=== PATIENT | male | born 1955 | race African-American/Black ===

== ENCOUNTER 2021-04-16 15:12 | Emergency (ER) | payer OTHER ==
[~2021-04-16] VITALS: Ht 182.9 cm; Wt 72.6 kg
--- NOTE | ~2021-04-16 | EMS ---
[address] [address] EMS Patient Care Report Name: AKOSUA CALDWELL Room #: PRE JASPREET [place]#: [id number] Admission: Attend Phys: Discharge: Date of : 59 Report #: [id number] THIS REPORT FOR: //name// Report Transmitted: 04/16/2021 15:46 EMS Care Summary [place], [place]/[facility] Incident [id number] @ 04/16/2021 14:36 Incident Location [address] [place], [place] [id number] Patient AKOSUA CALDWELL Male, 65 Years 1955 Patient Address [address] [place] [address] Patient History Hypertension (HTN),Dialysis,Type 2 Diabetes, Patient Allergies No known allergies, Patient Medications Carvedilol, Hydralazine, Amlodipine, Chief Complaint Severe resp distress. Disposition Transported [place] [facility] Reason Breathing Problem Transported To [facility] Narrative Call for SOB. Upon arrival, P36 on the scene. Pt tried to go to dialysis today but was turned away for fear of possible Covid dx. He said beginning on [address] [address] EMS Patient Care Report Name: AKOSUA CALDWELL Room #: PRE ER M.R.#: [id number] Admission: Attend Phys: Discharge: Date of : 59 Report #: [id number] Monday, he developed some body aches, vomiting and diarrhea. At this time, the pt is in severe resp distress. P36 had a nebulizer tx going with some improvement. Pt was moved to the EMS cot and loaded into the ambulance w/o incident. Vitals obtained. Pt switched to CPAP due to impending resp failure. 18g IV SL to R AC. En route: pt said he was doing a little better with CPAP. RR to the ER. Arrived: pt taken to ER #6 and moved to their bed w/o incident. Pt care & report to ER staff. Initial Vitals @14:55P: 110,R: 60,BP: 215/110,Pain: 0/10,GCS: 15,Glucose: 151,SpO2: 95,Revised Trauma: 11, Assessments @14:48MENTAL:Person Oriented,Event Oriented,Time Oriented,Place Oriented,SKIN:Diaphoresis,HEENT:Neck/Airway: JVD,LUNG SOUNDS:General: Diarrhea,General: Vomiting,ABDOMEN:General: Diarrhea,General: Vomiting,PELVIS//GI:EXTREMITIES:Left Arm: Other,Right Arm: No Abnormalities,Left Leg: No Abnormalities,Right Leg: No Abnormalities,PULSE:Radial: 2+ Normal,NEURO: Impression Acute Respiratory Distress (Dyspnea) Procedures @14:48 ALS Assessment Response: UnchangedSucceeded @PTAOxygen FlowRate: 8 Device: Nebulizer Response: UnchangedSucceeded @14:51 Stretcher Response: Unchanged @14:55 CPAP FlowRate: 10 Response: ImprovedSucceeded @14:59 IV Therapy - Saline Lock 8cc (18 ga) Site: Antecubital-Right Response: UnchangedSucceeded @PTAAlbuterol - 2.5 Milligrams (mg) - Nebulized Response: Improved @PTAAtrovent - 0.5 Milligrams (mg) - Nebulized Response: Improved @PTAAlbuterol - 2.5 Milligrams (mg) - Nebulized Response: Improved Timeline MANUFACTURING SHIFT SUPERVISOR,Oxygen FlowRate: 8 Device: Nebulizer Response: UnchangedSucceeded, MANUFACTURING SHIFT SUPERVISOR,Albuterol - 2.5 Milligrams (mg) - Nebulized,Response: Improved MANUFACTURING SHIFT SUPERVISOR,Atrovent - 0.5 Milligrams (mg) - Nebulized,Response: Improved MANUFACTURING SHIFT SUPERVISOR,Albuterol - 2.5 Milligrams (mg) - Nebulized,Response: Improved 14:35,Call Received 14:35,Dispatch Notified 14:36,Dispatched 14:36,En Route 14:47,On Scene 14:48,At Patient [address] [address] EMS Patient Care Report Name: AKOSUA CALDWELL Room #: PRE M.R.#: [id number] Admission: Attend Phys: Discharge: Date of : 59 Report #: [id number] 14:48,ALS Assessment,Response: UnchangedSucceeded, 14:51,Stretcher,Response: Unchanged 14:55,CPAP FlowRate: 10 Response: ImprovedSucceeded, 14:55,BP: 215/110 M,PULSE: 110,RR: 60 R,SPO2: 95 Ox,ETCO2: ,B,PAIN: 0,GCS: 15, 14:59,IV Therapy - Saline Lock 8cc 18 ga Site: Antecubital-Right,Response: UnchangedSucceeded, 15:01,Depart Scene 15:21,At Destination 15:23,Call Closed Disclaimer v1.1 Copyright 2021 [employer] This EMS Care Summary contains data elements from the applicable legal record (which may be displayed differently). It is designed to provide pertinent information for the following purposes: continuity of care, clinical quality, and state data reporting. The complete legal record is available to ED staff and administrators of the receiving hospital in [employer]'s Patient Tracker. All data is provided "as is."
[2021-04-16 15:35] LABS: ABSOLUTE NEUTROPHILS 7.1 thou/uL (1.4-8.2); BASOPHILS 1.4 % (0.0-2.0); EOSINOPHILS 0.7 % (0.0-3.0); HEMATOCRIT 22.7 % (42.0-52.0); HEMOGLOBIN 7.3 gm/dL (14.0-18.0); LYMPHOCYTES 9.6 % (24.0-44.0); MCH 26.2 pg (26.0-34.0); MCHC 32.3 g/dL (28.0-37.0); MCV 81.3 fL (80.0-100.0); MONOCYTES 13.8 % (1.0-8.0); POLYS 74.5 % (36.0-66.0); RBC 2.79 mil/uL (4.50-6.00); RDW 20.3 % (10.5-14.5); WBC 9.6 thou/uL (4.0-11.0)
[2021-04-16 16:06] LABS: APTT 38.2 Seconds (24.5-32.8); INR 1.14; PROTIME 12.3 Seconds (10.5-12.1)
[2021-04-16 16:41] LABS: PLATELET COUNT 61 thou/uL (150-400)
[2021-04-16 16:42] LABS: ANISOCYTOSIS 2+; MICROCYTES 1+; PLATELET ESTIMATE DECREASED
[2021-04-16 17:05] LABS: CALCIUM 8.7 mg/dL (8.5-10.1); CREATININE 16.7 mg/dL (0.7-1.3); POTASSIUM 5.6 mmol/L (3.5-5.1)
[2021-04-16 18:11] LABS: ALBUMIN 3.5 g/dL (3.4-5.0); TOTAL BILIRUBIN 1.1 mg/dL (0.2-1.0)
[2021-04-16 19:00] VITALS: BP 142/68
--- NOTE | 2021-04-19 07:54 | EKG ---
[place] [address] [place] [address] ELECTROCARDIOGRAM REPORT Name: AKOSUA CALDWELL Room #: DEP JASPREET [place]#: [id number] Admission: 04/16/21 Attend Phys: Discharge: 04/16/21 Date of : 59 Report #: [id number] [facility] ED Test Date: 2021-04-16 Test Time: 17:02:26 Pat Name: AKOSUA CALDWELL Department: Room: Gender: M Rn Or Lvn: PANCHO : 1955 Requested By: Konrad Lara Order Number: [id number] MD: Ajay Dietrich Measurements Intervals [place] Rate: 79 P: 51 NC: 190 QRS: 8 QRSD: 115 T: 73 QT: 427 QTc: 490 Interpretive Statements Sinus rhythm Probable left atrial enlargement Poor R wave progression Nonspecific ST segment abnormality No previous ECG available for comparison Electronically Signed On 04-19-2021 7:53:52 ANIMAL CYTOLOGIST by Ajay Dietrich [email or web address] <ELECTRONICALLY SIGNED> By: Ajay Dietrich MD, [facility] 04/19/21 0753 170 01 Ajay Dietrich MD, FACC /EPI
== END 2021-04-16 19:03 ==
LOC: ER 15:12
PROVIDERS: Emergency Medicine
DX: U07.1 COVID-19 (principal); I10 Essential (primary) hypertension; Z91.15 Patient's noncompliance with renal dialysis